=== PATIENT | female | born 1965 | race Caucasian/White ===

== ENCOUNTER → 2016-08-13 | Outpatient (CLI) | payer BC ==
--- NOTE | 2016-08-16 08:47 | MM ---
Reason for exam: follow-up at short interval from prior study. Last mammogram was performed 6 months ago. History: Patient is postmenopausal and had first child at age 32. Physical Findings: Nurse did not find any significant physical abnormalities on exam. MG Diagnostic Mammo LT w CAD CC and MLO view(s) were taken of the left breast. Prior study comparison: February 13, 2016, left breast MG work up mamm w CAD LT. February 13, 2016, left breast US breast workup limited LT. January 29, 2016, bilateral MG screening mammo w CAD. December 23, 2014, bilateral MG screening mammo w CAD. October 26, 2013, bilateral digital screening mammo w/CAD. The breast tissue is heterogeneously dense. This may lower the sensitivity of mammography. No significant new findings when compared with previous films. These results were verbally communicated with the patient and result sheet given to the patient on 08/13/16. ASSESSMENT: Incomplete: need additional imaging evaluation, BI-RAD 0 RECOMMENDATION: Ultrasound of the left breast.
--- NOTE | 2016-08-16 08:49 | USB ---
Reason for exam: additional evaluation requested from abnormal screening. History: Patient is postmenopausal and had first child at age 32. US Breast LT Left breast ultrasound including all four quadrants, the retroareolar region and axilla demonstrates a 4 x 3 x 3mm mixed lesion at 9 o'clock versus 5 x 2 x 3mm previously. A benign entity is suggested. This can be reassessed once more on the patients annual exam. These results were verbally communicated with the patient and result sheet given to the patient on 08/13/16. ASSESSMENT: Probably benign, BI-RAD 3 RECOMMENDATION: Follow-up diagnostic mammogram of both breasts in 6 months. Ultrasound of the left breast in 6 months. (targeted 9:00) LENNIE
== END | disposition home or self-care (01) ==
LOC: RADMAMWWP 15:05
PROVIDERS: ATTEND Obstetrics & Gynecology
DX: R92.2 Inconclusive mammogram (principal); R92.8 Other abnormal and inconclusive findings on diagnostic imaging of breast
CPT/HCPCS: 76641; G0206

== ENCOUNTER → 2016-10-28 | Outpatient (CLI) | payer BC ==
--- NOTE | 2016-10-28 17:12 | US ---
EXAMINATION TYPE: US venous doppler duplex LE LT DATE OF EXAM: 10/28/2016 4:06 PM COMPARISON: NONE CLINICAL HISTORY: M79.662, R22.42 Left Lower Ext, pain and swelling. Left leg pain and swelling SIDE PERFORMED: Left TECHNIQUE: The lower extremity deep venous system is examined utilizing real time linear array sonog gunjan with graded compression, doppler sonography and color-flow sonography. VESSELS IMAGED: External Iliac Vein (EIV) Common Femoral Vein Deep Femoral Vein Greater Saphenous Vein * Femoral Vein Popliteal Vein Small Saphenous Vein * Proximal Calf Veins (* superficial vessels) Left Leg: Negative for DVT IMPRESSION: 1. No ultrasound evidence of deep venous thrombosis left lower extremity.
== END | disposition home or self-care (01) ==
LOC: RADUSWWP 15:47
PROVIDERS: ATTEND Family Medicine
DX: M79.662 Pain in left lower leg (principal); M79.89 Other specified soft tissue disorders

== ENCOUNTER → 2017-02-02 | Outpatient (CLI) | payer BC ==
--- NOTE | 2017-02-02 19:09 | MR ---
EXAMINATION TYPE: MR sacroiliac joints wo con DATE OF EXAM: 02/02/2017 COMPARISON: NONE HISTORY: Sacroillitis, Pain, Swelling, Limited movement Standard multiplanar, multisequence MRI departmental protocol Multiplanar, multisequence images of the sacroiliac joints were acquired. Diffusion weighted imaging was performed. FINDINGS: Incidental note is made of a vertebral hemangioma of L4. Marrow signal is somewhat heterogeneous. The SI joints appear to be maintained with no evidence of erosive change. There is mild increased sig nal along the sacral aspect of the SI joint right greater than left. Abnormal signal within the L3 an d L4 vertebral bodies are incidentally noted. No marrow edema or contusion within the visualized sacrum. IMPRESSION: 1. Mild bilateral sacroiliitis greater on the right. 2. Abnormal signal within L3 and L4 vertebral bodies which are only partially included on exam and re commend follow-up MRI of the lumbar spine.
== END | disposition home or self-care (01) ==
LOC: RADMRIMAIN 17:41
PROVIDERS: ATTEND Internal Medicine Rheumatology
DX: M46.1 Sacroiliitis, not elsewhere classified (principal)
CPT/HCPCS: 72195

== ENCOUNTER → 2017-02-18 | Outpatient (CLI) | payer BC ==
--- NOTE | 2017-02-18 16:20 | USB ---
EXAMINATION TYPE: US breast complete LT DATE OF EXAM: 02/18/2017 COMPARISON: Mammogram dated 08/13/2016 and 02/18/2017. CLINICAL HISTORY: R92.8 Abnormal Mammogram. 6 month follow-up for a probably benign cluster of cysts at the 9:00 position within the left breast. Left breast ultrasound was performed in all quadrants including the axillary tail. In the previous lo cation of a probably benign cluster of cysts at the 9:00 position in zone B within the left breast th ere is no sonographic finding. No mammographic finding is seen in this location. This cluster of cyst s likely resolved in the interim. On the prior exam there was increased through transmission and a we ll-defined posterior wall in regards to the 4 mm probably benign lesion. No suspicious sonographic ab normality is seen on today's examination. No solid or cystic masses are present. IMPRESSION: BI-RADS 1- Left breast ultrasound is negative for malignancy. Annual screening mammograp hy is recommended.
--- NOTE | 2017-02-21 10:21 | MM ---
Reason for exam: additional evaluation requested from prior study. Last mammogram was performed 6 months ago. History: Patient is postmenopausal and had first child at age 32. Physical Findings: Nurse did not find any significant physical abnormalities on exam. MG Diagnostic Mammo w CAD JUANPABLO Bilateral CC and MLO view(s) were taken. Prior study comparison: August 13, 2016, left breast MG diagnostic mammo LT w CAD. February 13, 2016, left breast MG work up mamm w CAD LT. The breast tissue is heterogeneously dense. This may lower the sensitivity of mammography. There is no discrete abnormality. No significant new findings when compared with previous films. These results were verbally communicated with the patient and result sheet given to the patient on 02/18/17. ASSESSMENT: Negative, BI-RAD 1 RECOMMENDATION: Routine screening mammogram of both breasts in 1 year.
== END | disposition home or self-care (01) ==
LOC: RADMAMWWP 15:16
PROVIDERS: ATTEND Obstetrics & Gynecology
DX: R92.8 Other abnormal and inconclusive findings on diagnostic imaging of breast (principal)
CPT/HCPCS: 76641; G0204

== ENCOUNTER → 2018-04-14 | Outpatient (CLI) | payer BC ==
--- NOTE | 2018-04-18 07:32 | MM ---
Reason for exam: screening (asymptomatic). Last mammogram was performed 1 year and 2 months ago. History: Patient is postmenopausal and had first child at age 32. Physical Findings: A clinical breast exam by your physician is recommended on an annual basis and results should be correlated with mammographic findings. MG 3D Screening Mammo W/Cad Bilateral CC and MLO view(s) were taken. Prior study comparison: February 18, 2017, bilateral MG diagnostic mammo w CAD JUANPABLO. August 13, 2016, left breast MG diagnostic mammo LT w CAD. The breast tissue is heterogeneously dense. This may lower the sensitivity of mammography. There is no discrete abnormality. No significant changes when compared with prior studies. ASSESSMENT: Negative, BI-RAD 1 RECOMMENDATION: Routine screening mammogram of both breasts in 1 year.
== END | disposition home or self-care (01) ==
LOC: RADMAMWWP 16:27
PROVIDERS: ATTEND Obstetrics & Gynecology
DX: Z12.31 Encounter for screening mammogram for malignant neoplasm of breast (principal)
CPT/HCPCS: 77063; 77067

== ENCOUNTER → 2018-08-25 | Outpatient (CLI) | payer BC ==
--- NOTE | 2018-08-28 09:41 | BD ---
EXAMINATION TYPE: Axial Bone Density DATE OF EXAM: 08/25/2018 COMPARISON: 12/05/2013 CLINICAL HISTORY: Height: 58 IN Weight: 191 LBS FRAX RISK QUESTIONS: Secondary Osteoporosis: 3. Menopause before 45: AGE 40 Rheumatoid Arthritis: YES RISK FACTORS HISTORY OF: Active: YES Diet low in dairy products/other sources of calcium: YES Postmenopausal woman: AGE 40 MEDICATIONS: Thyroid Medications: YES Which medication: Levothyroxine How Lon YEARS Additional Medications: VIT D, LEVOTHYROXINE, FOLIC ACID, ALDACTONE, COZAAR, GABAPENTIN, METHOTREXATE , VITAMIN, HAIR SKIN NAILS, TUMERIC, Additional History: EXAM MEASUREMENTS: Bone mineral densitometry was performed using the [employer] System. Bone mineral density as measured about the Lumbar spine is: ----- L1-L4(G/cm2): 1.627 T Score Values are as follows: ----- L2: 2.1 ----- L3: 4.6 ----- L4: 6.1 ----- L1-L4: 3.7 Bone mineral density has: Increased 11.9% since study of: 12/05/2013 Bone mineral density about the R hip (g/cm2): 0.965 Bone mineral density about the L hip (g/cm2): 0.958 T Score values are as follows: -----R Neck: -0.5 -----L Neck: -0.6 -----R Total: 0.5 -----L Total: 0.3 Bone mineral density has: Increased 0.3% since study of: 12/05/2013 IMPRESSION: Normal (Values between +1 and -1 indicate normal bone mass). Consider repeating this study in 5 year s or sooner if there is some new clinical indication. NOTE: T-SCORE=SD OF THE YOUNG ADULT MEAN.
== END | disposition home or self-care (01) ==
LOC: RADBDWWP 15:41
PROVIDERS: ATTEND Obstetrics & Gynecology
DX: Z13.820 Encounter for screening for osteoporosis (principal)
CPT/HCPCS: 77080

== ENCOUNTER → 2019-04-27 | Outpatient (CLI) | payer BC ==
--- NOTE | 2019-04-30 09:45 | MM ---
Reason for exam: screening (asymptomatic). Last mammogram was performed 1 year ago. History: Patient is postmenopausal and had first child at age 32. Physical Findings: A clinical breast exam by your physician is recommended on an annual basis and results should be correlated with mammographic findings. MG 3D Screening Mammo W/Cad Bilateral CC, MLO, and XCCL view(s) were taken. Prior study comparison: April 14, 2018, bilateral MG 3d screening mammo w/cad. February 18, 2017, bilateral MG diagnostic mammo w CAD JUANPABLO. The breast tissue is heterogeneously dense. This may lower the sensitivity of mammography. No significant changes when compared with prior studies. ASSESSMENT: Benign, BI-RAD 2 RECOMMENDATION: Routine screening mammogram of both breasts in 1 year.
== END | disposition home or self-care (01) ==
LOC: RADMAMWWP 15:34
PROVIDERS: ATTEND Obstetrics & Gynecology
DX: Z12.31 Encounter for screening mammogram for malignant neoplasm of breast (principal)
CPT/HCPCS: 77063; 77067

== ENCOUNTER → 2019-09-21 | Outpatient (CLI) | payer BC ==
--- NOTE | 2019-09-21 23:33 | XR ---
EXAMINATION TYPE: XR knee complete bilateral DATE OF EXAM: 09/21/2019 CLINICAL HISTORY: Bilateral knee pain. TECHNIQUE: Three views of the bilateral knees are obtained. COMPARISON: None. FINDINGS: There is no acute fracture/dislocation evident in either knee. Right knee shows moderate m edial tibiofemoral compartment joint space loss and spurring. There is severe patellofemoral compartm ent joint space loss and narrowing. Left knee shows severe narrowing and spurring medial tibial femoral compartment with mild to moderate spurring lateral tibiofemoral compartment. There is severe spurring and narrowing patellofemoral com partment. Weight-bearing frontal images redemonstrate [id number] medial tibiofemoral compartment narrow ing and spurring bilaterally more prominent left knee versus right knee with findings slightly more p rominent on weightbearing images. Weightbearing lateral images left knee shows chronic fragmented ost eophyte into the suprapatellar joint space on the left. Patellofemoral compartment degenerative howard es slightly more prominent right knee versus left knee. IMPRESSION: As above
== END | disposition home or self-care (01) ==
LOC: RADXRMAIN 16:20
PROVIDERS: ATTEND Family Medicine
DX: M25.762 Osteophyte, left knee (principal); M25.862 Other specified joint disorders, left knee; M25.861 Other specified joint disorders, right knee

== ENCOUNTER → 2020-06-10 | Outpatient (CLI) | payer BC ==
--- NOTE | 2020-06-11 13:03 | MM ---
Reason for exam: screening (asymptomatic). Last mammogram was performed 1 year and 1 month ago. History: Patient is postmenopausal and had first child at age 32. Physical Findings: A clinical breast exam by your physician is recommended on an annual basis and results should be correlated with mammographic findings. MG 3D Screening Mammo W/Cad Bilateral CC and MLO view(s) were taken. Prior study comparison: April 27, 2019, bilateral MG 3d screening mammo w/cad. April 14, 2018, bilateral MG 3d screening mammo w/cad. The breast tissue is heterogeneously dense. This may lower the sensitivity of mammography. There are benign appearing round linear calcifications in the left breast. There is no discrete abnormality. ASSESSMENT: Benign, BI-RAD 2 RECOMMENDATION: Routine screening mammogram of both breasts in 1 year.
== END | disposition home or self-care (01) ==
LOC: RADMAMWWP 16:44
PROVIDERS: ATTEND Obstetrics & Gynecology
DX: Z12.31 Encounter for screening mammogram for malignant neoplasm of breast (principal)
CPT/HCPCS: 77063; 77067

== ENCOUNTER → 2020-12-11 | Outpatient (CLI) | payer BC ==
--- NOTE | 2020-12-12 07:27 | XR ---
EXAMINATION TYPE: XR spine complete AP and Lat DATE OF EXAM: 12/11/2020 COMPARISON: NONE HISTORY: Pain TECHNIQUE: Three views of the cervical spine are submitted. FINDINGS: The cervical spine is visualized in its entirety from C1 thru the top of T1 level. It is s atisfactory in alignment without evidence of acute fracture or dislocation. The pre-vertebral soft t issue appears within normal limits. The C1-C2 articulation is unremarkable on the open mouth view. Moderate degenerative narrowing at C5-6 and C6-7. Ventral and dorsal spondylosis. IMPRESSION: No acute fracture or dislocation is seen in the cervical spine. Degenerative changes not ed. THORACIC SPINE 2 VIEWS. TECHNIQUE: Frontal, lateral, and swimmer's view of thoracic spine are obtained. COMPARISON: None. FINDINGS: Thoracic spine show satisfactory alignment without evidence of acute fracture or dislocatio n. Vertebral body heights are preserved. Moderate multilevel degenerative disc space narrowing and spondylosis. Visualized ribs are unremarkable. IMPRESSION: No acute fracture or dislocation is seen in the thoracic spine. Degenerative changes note d. LUMBAR SPINE X-RAY: TECHNIQUE: Three views of the lumbar spine are submitted. COMPARISON: None. FINDINGS: There are 5 lumbar type vertebral bodies identified. The lumbar spine shows satisfactory alignment without evidence of acute fracture or dislocation. Vertebral body heights are within normal limits. Severe narrowing at L3-4 with moderate narrowing at L2-3 and L5-S1. Ventral and dorsal spo ndylosis. Suspected foraminal encroachment at L3-4, L4-5 and L5-S1. The overlying soft tissue appea rs unremarkable. IMPRESSION: No acute fracture or dislocation is seen in the lumbar spine. Degenerative changes as n oted.ICD 10 NO FRACTURE, INITIAL EVALUATION
--- NOTE | 2020-12-12 07:31 | XR ---
EXAMINATION TYPE: XR sacroiliac joint comp BILAT DATE OF EXAM: 12/11/2020 CLINICAL HISTORY: Pain TECHNIQUE: 3 views of the sacroiliac joints are submitted. COMPARISON: None. FINDINGS: There is sclerosis on both sides of the sacroiliac joints bilaterally. Mild narrowing sugge sted of the sacroiliac joints. No fracture or bony destructive process. IMPRESSION: Suspected sacroiliitis likely related to osteoarthritis. Correlate clinically.
== END | disposition home or self-care (01) ==
LOC: RADXRMAIN 16:24
PROVIDERS: ATTEND Family Medicine
DX: M50.323 Other cervical disc degeneration at C6-C7 level (principal); M47.812 Spondylosis without myelopathy or radiculopathy, cervical region; M51.34 Other intervertebral disc degeneration, thoracic region; M47.814 Spondylosis without myelopathy or radiculopathy, thoracic region; M51.37 Other intervertebral disc degeneration, lumbosacral region; M47.816 Spondylosis without myelopathy or radiculopathy, lumbar region; M53.3 Sacrococcygeal disorders, not elsewhere classified
CPT/HCPCS: 72082; 72202

== ENCOUNTER → 2021-06-18 | Outpatient (CLI) | payer BC ==
--- NOTE | 2021-06-19 11:54 | MM ---
Reason for exam: screening (asymptomatic). Last mammogram was performed 1 year ago. History: Patient is postmenopausal and had first child at age 32. Took hormonal contraceptives for 3 years. Took other hormone for 1 year. Physical Findings: A clinical breast exam by your physician is recommended on an annual basis and results should be correlated with mammographic findings. MG 3D Screening Mammo W/Cad Bilateral CC and MLO view(s) were taken. Prior study comparison: June 10, 2020, bilateral MG 3d screening mammo w/cad. April 27, 2019, bilateral MG 3d screening mammo w/cad. The breast tissue is heterogeneously dense. This may lower the sensitivity of mammography. There are benign appearing round calcifications bilaterally. There is no discrete abnormality. ASSESSMENT: Benign, BI-RAD 2 RECOMMENDATION: Routine screening mammogram of both breasts in 1 year.
== END | disposition home or self-care (01) ==
LOC: RADMAMWWP 07:02
PROVIDERS: ATTEND Obstetrics & Gynecology
DX: Z12.31 Encounter for screening mammogram for malignant neoplasm of breast (principal); Z78.0 Asymptomatic menopausal state
CPT/HCPCS: 77063; 77067

== ENCOUNTER → 2021-12-29 | Outpatient (CLI) | payer BC ==
[2021-12-29 18:33] LABS: Uric Acid 4.8 mg/dL (2.9-7.7)
[2021-12-29 19:30] LABS: INR 0.96 (0.90-1.11); Prothrombin Time 10.6 sec (9.9-11.9)
[2021-12-29 20:55] LABS: Anti-Smith Ab Interp NEGATIVE (NEGATIVE); Centromere Antibody <0.2 AI; Centromere Antibody Interp NEGATIVE (NEGATIVE); DNA Double-Stranded NEGATIVE (NEGATIVE); JO-1 IgG Antibody <0.2 AI; Scleroderma SC-70 Ab <0.2 AI
[2021-12-30 12:31] LABS: C-ANCA <1:20 Titer (<1:20)
[2021-12-30 12:32] LABS: HLA B27 POSITIVE
== END | disposition home or self-care (01) ==
LOC: LABWHC1 10:30
PROVIDERS: ATTEND Family Medicine
DX: M25.569 Pain in unspecified knee (principal); D64.9 Anemia, unspecified
CPT/HCPCS: 36415; 82728; 84550; 85610; 85652; 86038; 86140; 86225; 86235; 86255; 86812

== ENCOUNTER → 2022-06-21 | Outpatient (CLI) | payer BC ==
--- NOTE | 2022-06-22 18:02 | MM ---
Reason for Exam: Screening (asymptomatic). Last screening mammogram was performed 12 month(s) ago. Patient History: Menarche at age 10. First Full-Term at age 32. Late child-bearing (after 30). Hysterectomy at age 40. Postmenopausal. Patient used Hormonal Contraceptives for 3 years. Risk Values: Amena 5 year model risk: 1.9%. NCI Lifetime model risk: 10.2%. Prior Study Comparison: 04/27/2019 Bilateral Screening Mammogram, [facility]. 06/10/2020 Bilateral Screening Mammogram, [facility]. 06/18/2021 Bilateral Screening Mammogram, [facility]. Tissue Density: The breast tissue is heterogeneously dense. This may lower the sensitivity of mammography. Findings: Analyzed By CAD. Asymmetric density far lateral right CC view anterior to middle depth remains unchanged. Chronic nodularity lateral left CC view at middle depth. Additional areas of asymmetric density are also similar. No significant change from prior exams. Overall Assessment: Benign, BI-RAD 2 Management: Screening Mammogram of both breasts in 1 year. 1. Patient should continue monthly self breast exams. 2. A clinical breast exam by your physician is recommended on an annual basis. 3. This exam should not preclude additional follow-up of suspicious palpable abnormalities. Electronically signed and approved by: Mary Anne Vega M.D. Radiologist
== END | disposition home or self-care (01) ==
LOC: RADMAMWWP 15:26
PROVIDERS: ATTEND Obstetrics & Gynecology
DX: Z12.31 Encounter for screening mammogram for malignant neoplasm of breast (principal); Z78.0 Asymptomatic menopausal state
CPT/HCPCS: 77063; 77067

== ENCOUNTER → 2023-06-27 | Outpatient (CLI) | payer BC ==
--- NOTE | 2023-06-28 21:10 | MM ---
Reason for Exam: Screening (asymptomatic). Last screening mammogram was performed 12 month(s) ago. Patient History: Menarche at age 10. First Full-Term at age 32. Late child-bearing (after 30). Hysterectomy at age 40. Postmenopausal. Patient used Hormonal Contraceptives for 3 years. Risk Values: Amena 5 year model risk: 2.0%. NCI Lifetime model risk: 10.0%. Prior Study Comparison: 06/10/2020 Bilateral Screening Mammogram, [facility]. 06/18/2021 Bilateral Screening Mammogram, [facility]. 06/21/2022 Bilateral MG 3D screening mammo w/cad, [facility]. Tissue Density: The breast tissue is heterogeneously dense. This may lower the sensitivity of mammography. Findings: Analyzed By CAD. Areas of asymmetric density show no persisting abnormality on 3-D images. There is no suspicious group of microcalcifications or new suspicious mass in either breast. Overall Assessment: Benign, BI-RAD 2 Management: Screening Mammogram of both breasts in 1 year. . Patient should continue monthly self-breast exams. A clinical breast exam by your physician is recommended on an annual basis. This exam should not preclude additional follow-up of suspicious palpable abnormalities. Note on Amena scores and lifetime risk: 1. A Amena score greater than 3% is considered moderate risk. If this is the case, consider specialist referral to assess eligibility for a risk reducing agent. 2. If overall lifetime risk for the development of breast cancer is 20% or higher, the patient may qualify for future screening with alternating mammogram and breast MRI. Electronically signed and approved by: Mary Anne Vega M.D. Radiologist
== END | disposition home or self-care (01) ==
LOC: RADMAMWWP 12:39
PROVIDERS: ATTEND Obstetrics & Gynecology
DX: Z12.31 Encounter for screening mammogram for malignant neoplasm of breast (principal); Z78.0 Asymptomatic menopausal state; Z92.0 Personal history of contraception
CPT/HCPCS: 77063; 77067

== ENCOUNTER → 2024-07-10 | Outpatient (CLI) | payer BC ==
--- NOTE | 2024-07-10 10:41 | BD ---
EXAMINATION TYPE: Axial Bone Density DATE OF EXAM: 07/10/2024 CLINICAL HISTORY: 59 years old Female. ICD-10 CODE: M81.0 AGE-RELATED OSTEOPOROSIS W , Additional History: Height: 57 Weight: 190 FRAX RISK QUESTIONS: Secondary Osteoporosis: RISK FACTORS HISTORY OF: MEDICATIONS: Thyroid Medications: Which medication: Levothyroxine How Lon-12 years EXAM MEASUREMENTS: Bone mineral densitometry was performed using the [employer] System. Bone mineral density as measured about the Lumbar spine is: ----- L1-L4(G/cm2): 1.451 T Score Values are as follows: ----- L1: 1.3 ----- L2: 1.3 ----- L3: 3.3 ----- L4: 2.9 ----- L1-L4: 2.3 Z Score Values are as follows: ----- L1: 1.9 ----- L2: 1.8 ----- L3: 3.8 ----- L4: 3.5 ----- L1-L4: 2.8 Bone mineral density has: Decreased -2.6% since study of: 12-05-13 Bone mineral density about the R hip (g/cm2): 1.106 Bone mineral density about the L hip (g/cm2): 1.044 T Score values are as follows: -----R Neck: -0.5 -----L Neck: -1.2 -----R Total: 0.8 -----L Total: 0.3 Z Score values are as follows: -----R Neck: 0.3 -----L Neck: -0.3 -----R Total: 1.3 -----L Total: 0.8 Bone mineral density has: Increased 1.6% since study of: 12-05-13 FRAX%s: The graph provided illustrates a 6.7% chance for a major osteoporotic fx and a 0.4% chance fo r the hips probability for fx in 10 years time. IMPRESSION: Osteopenia (T Score between -2.5 and -1). There is slightly increased risk of fracture and the patient may be considered for treatment. Re-Screen 2-5 years. NOTE: T-SCORE=SD OF THE YOUNG ADULT MEAN. [facility], , 07/10/2024 10:39 AM
== END | disposition home or self-care (01) ==
LOC: RADMAMWWP 08:33
PROVIDERS: ATTEND Family Medicine
DX: Z12.31 Encounter for screening mammogram for malignant neoplasm of breast (principal); M81.0 Age-related osteoporosis without current pathological fracture; M81.8 Other osteoporosis without current pathological fracture; M85.80 Other specified disorders of bone density and structure, unspecified site
CPT/HCPCS: 77063; 77067; 77080